=== PATIENT | male | born 1930 | race Caucasian/White ===

== ENCOUNTER 2018-05-10 18:37 | Emergency (ER) | payer OTHER ==
[~2018-05-10] VITALS: Ht 185.4 cm; Wt 90.7 kg
[2018-05-10 18:45] VITALS: BP 140/78
[2018-05-10] MEDS ORDERED: TDAP [DIPH/PERTUSSIS/TET] 0.5 ML VIAL IM ONE ×2 (19:30→20:07)
--- NOTE | 2018-05-10 20:21 | NUR ---
TDAP INJECTION ADMINISTERED ON LT DELTOID. LOT #: [id number]. EXP DATE: 05/16/20
--- NOTE | 2018-05-10 20:22 | NUR ---
LEFT SKIN NOTED ON LEFT ELBOW, BLEEDING NOTED. CLEANED WITH NS. COVERED WITH GAUZE AND BANDAGE AND WRAPPED WITH KERLIX. SECURED WITH TAPE.
--- NOTE | 2018-05-10 20:24 | NUR ---
Behzad LYLES TAKEN TO CT VIA PONCE
--- NOTE | 2018-05-10 22:12 | NUR ---
Patient discharged to home in stable condition. Written and verbal after care instructions given. Patient verbalizes understanding of instruction. Dressing applied on left elbow skin tear. No bleeding noted. Patient left on foot walking with steady gait with family. No s/s of acute distress or sob noted. VS stable.
== END 2018-05-10 22:15 | disposition home or self-care (01) ==
LOC: ER 18:42
DX: S51.012A Laceration without foreign body of left elbow, initial encounter (principal); M54.2 Cervicalgia; I10 Essential (primary) hypertension; G89.29 Other chronic pain; M19.90 Unspecified osteoarthritis, unspecified site; Z96.653 Presence of artificial knee joint, bilateral; Z60.2 Problems related to living alone; Z86.79 Personal history of other diseases of the circulatory system; Z85.46 Personal history of malignant neoplasm of prostate; Z90.79 Acquired absence of other genital organ(s); V43.52XA Car driver injured in collision with other type car in traffic accident, initial encounter; Y93.89 Activity, other specified; Y92.413 State road as the place of occurrence of the external cause; Y99.8 Other external cause status
CPT/HCPCS: 72125-TC; 73080-TC; 90715; A4606; A6402; A6403; J7030; Z7610